=== PATIENT | male | born 1985 | race African-American/Black ===

== ENCOUNTER → 2019-01-03 | Outpatient (CLI) | payer BC | LOC: OD 08:16 | PROVIDERS: ATTEND Otolaryngology | DX: R09.82 Postnasal drip (principal) | CPT/HCPCS: 36415; 82785; 86003 ==

== ENCOUNTER 2019-03-17 06:07 | Day surgery (SDC) | payer BC ==
[2019-03-01 09:49] LABS: ABSOLUTE EOSINOPHILS # (AUTO) 0.1 10^3/uL (0.0-0.6); ABSOLUTE LYMPHOCYTES (AUTO) 2.5 10^3/uL (0.5-4.7); ABSOLUTE MONOCYTES (AUTO) 0.6 10^3/uL (0.1-1.4); ABSOLUTE NEUT (AUTO) 4.6 10^3/uL (1.7-8.2); BASOPHILS % (AUTO) 0.3 % (0-2); EOSINOPHILS % (AUTO) 0.9 % (0-6); HEMATOCRIT 43.2 % (37.9-51.0); HEMOGLOBIN 14.3 g/dL (13.5-17.0); LYMPHOCYTES % (AUTO) 32.5 % (13-45); MEAN CORPUSCULAR HEMOGLOBIN 25.8 pg (27.0-33.4); MEAN CORPUSCULAR HGB CONC 33.1 g/dL (32.0-36.0); MEAN CORPUSCULAR VOLUME 78 fl (80-97); MONOCYTES % (AUTO) 7.2 % (3-13); PLATELET COUNT 198 10^3/uL (150-450); RED BLOOD COUNT 5.53 10^6/uL (4.35-5.55); RED CELL DISTRIBUTION WIDTH 14.8 % (11.5-14.0); SEGMENTED NEUTROPHILS % (AUTO) 59.1 % (42-78); TOTAL CELLS COUNTED % (AUTO) 100 %; WHITE BLOOD COUNT 7.7 10^3/uL (4.0-10.5)
[2019-03-01 10:16] LABS: ANION GAP 10 (5-19); BLOOD UREA NITROGEN 17 mg/dL (7-20); CALCIUM 9.5 mg/dL (8.4-10.2); CARBON DIOXIDE 31 mmol/L (22-30); CHLORIDE 101 mmol/L (98-107); GLUCOSE 93 mg/dL (75-110); POTASSIUM 4.3 mmol/L (3.6-5.0); SODIUM 141.7 mmol/L (137-145)
--- NOTE | 2019-03-01 13:32 | EKG REPORT ---
SEVERITY:- NORMAL ECG - SINUS RHYTHM : Confirmed by: Amaury Franks MD 01-Mar-2019 13:31:45
[~2019-03-17 06:07] MED LIST: LIDOCAINE 0.5% INJ-PF (5 MG/ML) 50 ML SDV SUBCUT PRN
[2019-03-17] MEDS ORDERED: CEFAZOLIN 2 GM/D5W RTU 2 GM/50 ML RTUPB IV ONE (07:31)
[2019-03-17] MEDS ORDERED: ALBUTEROL SULFATE 0.083% NEB 2.5 MG/3 ML AMPUL NEB PRN (07:35)
[2019-03-17] MEDS ORDERED: METOCLOPRAMIDE HCL INJ/PF 10 MG/2 ML SDV ONE (07:41)
[2019-03-17] MEDS ORDERED: FAMOTIDINE INJ/PF 20 MG/2 ML SDV IV ONE (07:43)
[2019-03-17] MEDS ORDERED: MIDAZOLAM 2 MG/2 ML INJ ONE ×2 (07:43→08:36)
[2019-03-17] MEDS ORDERED: ALBUTEROL SULFATE 0.083% NEB 2.5 MG/3 ML AMPUL NEB ONE (07:54)
[2019-03-17] MEDS ORDERED: EPINEPHRINE INJ/PF 1 MG/1 ML AMPULE ONE (08:27)
[2019-03-17] MEDS ORDERED: BUPIVACAINE HCL 0.5%-EPI 1:200000 INJ/PF 30 ML VIAL ONE (08:28)
[2019-03-17] MEDS ORDERED: OXYMETAZOLINE HCL 0.05% NASAL SPRAY 15 ML BOTTLE ONE ×2 (08:28→11:38)
[2019-03-17] MEDS ORDERED: CIPROFLOXACIN HCL/FLUOCINOLONE 0.3%/0.025% OTIC ONE (08:28)
[2019-03-17] MEDS ORDERED: LIDOCAINE 2% INJ-PF (100 MG/5 ML) SYRINGE ONE ×2 (08:35→13:23)
[2019-03-17] MEDS ORDERED: FENTANYL CITRATE INJ/PF 250 MCG/5 ML AMPULE ONE ×2 (08:36→10:10)
[2019-03-17] MEDS ORDERED: PROPOFOL INJ 200 MG/20 ML VIAL IV ONE ×2 (08:36→12:19)
[2019-03-17] MEDS ORDERED: BUPIVACAINE HCL 0.5%/EPI 1:200000 INJ 1.8 ML CARTRIDGE ONE (09:09)
[2019-03-17] MEDS ORDERED: SUCCINYLCHOLINE CHLORIDE INJ 200 MG/10 ML VIAL ONE ×2 (10:33→10:36)
[2019-03-17] MEDS ORDERED: GLYCOPYRROLATE 1 MG/5 ML VIAL ONE (10:33)
[2019-03-17] MEDS ORDERED: ONDANSETRON HCL INJ/PF 4 MG/2 ML SDV ONE (10:33)
[2019-03-17] MEDS ORDERED: DEXAMETHASONE SOD PHOSPHATE INJ 4 MG/1 ML VIAL ONE ×2 (10:33→10:36)
[2019-03-17] MEDS ORDERED: MEPERIDINE HCL/PF INJ 25 MG/1 ML DISP.SYRIN IV PRN (10:59)
[2019-03-17] MEDS ORDERED: DIPHENHYDRAMINE HCL 50 MG/ML VIAL IV PRN (10:59)
[2019-03-17] MEDS ORDERED: FENTANYL CITRATE INJ/PF 100 MCG/2 ML AMPUL IV PRN ×3 (10:59)
[2019-03-17] MEDS ORDERED: PROMETHAZINE HCL INJ 25 MG/1 ML VIAL IV PRN ×2 (10:59)
[2019-03-17] MEDS ORDERED: IPRATROPIUM/ALBUTEROL 0.5-2.5 MG/3 ML AMPUL NEB ONE (12:01)
[2019-03-17] MEDS ORDERED: ALBUTEROL SULFATE HFA (90 MCG/PUFF) 200 PUFF/8.5 GM MDI IH ONE (13:23)
[2019-03-17] MEDS ORDERED: METOPROLOL TARTRATE PF/INJ 5 MG/5 ML SDV IV ONE (13:23)
[2019-03-17] MEDS: FENTANYL CITRATE INJ/PF 100 MCG/2 ML AMPUL ONE ×3 (13:25→13:40)
[2019-03-17] MEDS ORDERED: HYDRALAZINE HCL INJ/PF 20 MG/1 ML SDV ONE (14:05)
[2019-03-17] MEDS ORDERED: ONDANSETRON HCL INJ/PF 4 MG/2 ML SDV IV PRN (14:07)
[2019-03-17] MEDS: LACTATED RINGERS 1000 ML IV PRN ×2 (15:46→23:21)
[2019-03-17] MEDS: OXYCODONE-ACETAMINOPHEN 5-325 MG TABLET PO PRN (15:46)
--- NOTE | 2019-03-17 18:03 | PDOC CONSULTATION ---
Consultation Consult Date: 03/17/19 Attending physician:: GUCCI DELONG Provider Consulted: DORIE ZAMBRANO Consult reason:: Hypoxia History of Present Illness Admission Date/PCP: DIEGO LOPEZ MD History of Present Illness: CARLOS GUDINO is a 33 year old male resents for surgery for vocal cord polypectomy and other ENT procedures complicated by episodic hypoxemia he denies shortness of breath or dyspnea on exertion he has questionable history of asthma and occasionally wheezes. Denies hemoptysis his PPD was negative dates unknown he denies history of chronic lung disease as a child or adolescent he denies exposure to passive smoke as a child was an adult. 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 He denies angina-like chest pain sleeps on 2 pillows no PND no nocturnal cough no edema he admits to snoring restless sleep nocturia x2 unrestful sleep and excessive daytime somnolence. In the past has been diagnosed with obstructive sleep apnea but is never been given CPAP Past Medical History Cardiac Medical History: Reports: Hypertension Denies: Coronary Artery Disease, Myocardial Infarction Pulmonary Medical History: Reports: Asthma - MODERATE, Sleep Apnea Denies: Bronchitis, Chronic Obstructive Pulmonary Disease (COPD), Pneumonia Neurological Medical History: Denies: Seizures Endocrine Medical History: Reports: Obesity Renal/ Medical History: Reports: None Malignancy Medical History: Reports: None GI Medical History: Denies: Crohn's Disease, Gastroesophageal Reflux Disease, Hepatitis, Peptic Ulcer Disease, Ulcerative Colitis Musculoskeltal Medical History: Denies: Arthritis, Gout Skin Medical History: Denies: Eczema, Psoriasis Psychiatric Medical History: Denies: Alcohol Dependency, Substance Abuse, Tobacco Dependency Traumatic Medical History: Denies: Pneumothorax, Stab Wound, Traumatic Brain Injury Hematology: Denies: Anemia, Sickle Cell Disease Infectious Medical History: Denies: Hepatitis B, Hepatitis C, HIV Past Surgical History Past Surgical History: Reports: Tonsillectomy Social History Information Source: Patient, Relative, [facility] Records Smoking Status: Former Smoker Cigarettes Packs Per Day: 0.5 Number of Years Smokin Last Time Smoked: 30 months Hx Recreational Drug Use: Yes Hx Prescription Drug Abuse: No Do you have pets?: Yes Have you had any respiratory illnesses as a child?: No Have you been exposed to any sick contacts recently?: No Have you had any recent respiratory illnesses?: No Have you travelled outside of [place] in the past 12 months?: Yes Family History Family History: Hypertension, Malignancy Parental Family History Reviewed: Yes Children Family History Reviewed: Yes Sibling(s) Family History Reviewed.: Yes Medication/Allergy Home Medications: Lisinopril/Hydrochlorothiazide [Lisinopril-Hctz 20-12.5 mg Tab] 1 each PO DAILY 03/01/19 Montelukast Sodium [Singulair 10 mg Tablet] 10 mg PO DAILY 03/01/19 Omeprazole Magnesium [Prilosec Otc] 20 mg PO DAILY 03/01/19 Allergies/Adverse Reactions: No Known Allergies Allergy (Verified 03/17/19 06:56) Review of Systems Constitutional: PRESENT: fatigue. ABSENT: anorexia, chills, fever(s), headache(s), weight gain, weight loss Eyes: ABSENT: visual disturbances Ears: ABSENT: hearing changes Nose, Mouth, and Throat: ABSENT: mouth pain, sore throat Cardiovascular: ABSENT: chest pain, dyspnea on exertion, edema, orthropnea, p alpitations Respiratory: ABSENT: cough, dyspnea, hemoptysis, sputum Gastrointestinal: ABSENT: abdominal pain, coffee ground emesis, constipation, diarrhea, dysphagia, heartburn, hematemesis, hematochezia, melena, nausea Genitourinary: ABSENT: dysuria, hematuria Musculoskeletal: ABSENT: deformity, joint swelling Integumentary: ABSENT: pruritus, rash Neurological: ABSENT: abnormal gait, abnormal movements, abnormal speech, focal weakness, frequent falls, lack of coordination, memory loss Psychiatric: ABSENT: hallucinations, homidical ideation, suicidal ideation Endocrine: ABSENT: cold intolerance, heat intolerance, polydipsia, polyuria Hematologic/Lymphatic: ABSENT: easy bruising, lymphadenopathy Allergic/Immunologic: ABSENT: seasonal rhinorrhea Physical Exam Vital Signs: Temp Pulse Resp BP Pulse Ox 98.4 F 107 H 20 165/104 H 96 03/17/19 17:00 03/17/19 17:00 03/17/19 17:00 03/17/19 17:00 03/17/19 17:00 Intake & Output 03/16/19 03/17/19 03/18/19 06:59 06:59 06:59 Intake Total 0 1700 Output Total 15 Balance 0 1685 Weight 179.17 kg 179.17 kg General appearance: PRESENT: no acute distress, cooperative, disheveled, morbidly obese Head exam: PRESENT: atraumatic, normocephalic Eye exam: PRESENT: conjunctiva pale, EOMI. ABSENT: nystagmus, periorbital s welling, scleral icterus Mouth exam: PRESENT: dry mucosa, neck supple Neck exam: ABSENT: carotid bruit, full ROM, JVD, lymphadenopathy, meningismus, t enderness, thyromegaly, tracheal deviation, tracheostomy, other Cardiovascular exam: PRESENT: RRR, +S1, +S2 Pulses: PRESENT: normal radial pulses GI/Abdominal exam: PRESENT: soft. ABSENT: mass, tenderness Extremities exam: ABSENT: calf tenderness, clubbing, full ROM, joint swelling Musculoskeletal exam: ABSENT: deformity, dislocation Neurological exam: PRESENT: alert, awake Psychiatric exam: PRESENT: flat affect Skin exam: PRESENT: dry, warm Results Laboratory Results: 03/01/19 08:56 03/17/19 06:45 03/17/19 06:45 Potassium 3.8 Assessment & Plan - Diagnosis (1) Apnea, sleep Is this a current diagnosis for this admission?: Yes Plan: Sleep study after discharge we will start him on empiric BiPAP 08/31 (2) Essential hypertension Is this a current diagnosis for this admission?: Yes Plan: continue current therapy hopefully hypertension will improve after sleep apnea has been attended (3) 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 Gudino and he will participate in his care
[2019-03-17] MEDS ORDERED: HYDRALAZINE HCL 50 MG TABLET PO ONE (18:55)
[2019-03-17 19:00] LABS: ARTERIAL BLOOD H2CO3 1.21 mmol/L (1.05-1.35); ARTERIAL BLOOD HCO3 27.3 mmol/L (20-24); ARTERIAL BLOOD O2 SATURATION 95.8 % (94-98); ARTERIAL BLOOD PCO2 40.3 mmHg (35-45); ARTERIAL BLOOD PH 7.45 (7.35-7.45); ARTERIAL BLOOD PO2 76.6 mmHg (80-100); ARTERIAL BLOOD TOTAL CO2 28.5 mmol/L (23-27)
[2019-03-17 19:02] LABS: ARTERIAL BLOOD FIO2 ROOM AIR
[2019-03-17] MEDS ORDERED: METOPROLOL TARTRATE 100 MG TABLET PO ONE (19:30)
[2019-03-17] MEDS: CLONIDINE HCL 0.1 MG TABLET PO SCH (22:26)
[2019-03-17] MEDS: HYDRALAZINE HCL 50 MG TABLET PO SCH (22:27)
[2019-03-18 05:03] LABS: ABSOLUTE LYMPHOCYTES (AUTO) 1.8 10^3/uL (0.5-4.7); ABSOLUTE MONOCYTES (AUTO) 1.2 10^3/uL (0.1-1.4); ABSOLUTE NEUT (AUTO) 12.2 10^3/uL (1.7-8.2); BASOPHILS % (AUTO) 0.1 % (0-2); EOSINOPHILS % (AUTO) 0.1 % (0-6); HEMATOCRIT 40.2 % (37.9-51.0); HEMOGLOBIN 13.3 g/dL (13.5-17.0); LYMPHOCYTES % (AUTO) 11.7 % (13-45); MEAN CORPUSCULAR HEMOGLOBIN 25.8 pg (27.0-33.4); MEAN CORPUSCULAR VOLUME 78 fl (80-97); PLATELET COUNT 228 10^3/uL (150-450); RED BLOOD COUNT 5.15 10^6/uL (4.35-5.55); RED CELL DISTRIBUTION WIDTH 15.2 % (11.5-14.0); SEGMENTED NEUTROPHILS % (AUTO) 80.1 % (42-78); TOTAL CELLS COUNTED % (AUTO) 100 %; WHITE BLOOD COUNT 15.2 10^3/uL (4.0-10.5)
[2019-03-18 05:22] LABS: ANION GAP 9 (5-19); BLOOD UREA NITROGEN 12 mg/dL (7-20); CALCIUM 9.4 mg/dL (8.4-10.2); CARBON DIOXIDE 28 mmol/L (22-30); CHLORIDE 102 mmol/L (98-107); GLUCOSE 117 mg/dL (75-110); POTASSIUM 4.2 mmol/L (3.6-5.0); SODIUM 138.9 mmol/L (137-145)
[2019-03-18] MEDS: HYDRALAZINE HCL 50 MG TABLET PO SCH ×2 (05:45→14:02)
[2019-03-18] MEDS: OXYCODONE-ACETAMINOPHEN 5-325 MG TABLET PO PRN (05:55)
--- NOTE | 2019-03-18 08:41 | PDOC CONSULTATION ---
Consultation Consult Date: 03/17/19 Provider Consulted: GUCCI DELONG Consult reason:: Medical management History of Present Illness Admission Date/PCP: DIEGO LOPEZ MD History of Present Illness: CARLOS HENDRICKSON is a 33 year old male patient with past medical history of hypertension and vocal cord polyp, patient had vocal cord polypectomy and is postop was complicated by hypertensive urgency. The hospital service consulted to manage his blood pressure. Past Medical History Cardiac Medical History: Reports: Hypertension Denies: Coronary Artery Disease, Myocardial Infarction Pulmonary Medical History: Reports: Asthma - MODERATE, Sleep Apnea Denies: Bronchitis, Chronic Obstructive Pulmonary Disease (COPD), Pneumonia Neurological Medical History: Denies: Seizures Endocrine Medical History: Reports: Obesity Renal/ Medical History: Reports: None Malignancy Medical History: Reports: None GI Medical History: Denies: Crohn's Disease, Gastroesophageal Reflux Disease, Hepatitis, Peptic Ulcer Disease, Ulcerative Colitis Musculoskeltal Medical History: Denies: Arthritis, Gout Skin Medical History: Denies: Eczema, Psoriasis Psychiatric Medical History: Denies: Alcohol Dependency, Substance Abuse, Tobacco Dependency Traumatic Medical History: Denies: Pneumothorax, Stab Wound, Traumatic Brain Injury Hematology: Denies: Anemia, Sickle Cell Disease Infectious Medical History: Denies: Hepatitis B, Hepatitis C, HIV Past Surgical History Past Surgical History: Reports: Tonsillectomy Social History Smoking Status: Former Smoker Cigarettes Packs Per Day: 0.5 Number of Years Smokin Last Time Smoked: 30 months Hx Recreational Drug Use: Yes Hx Prescription Drug Abuse: No - Advance Directive Resuscitation Status: Full Code Family History Family History: Hypertension, Malignancy Parental Family History Reviewed: Yes Children Family History Reviewed: Yes Sibling(s) Family History Reviewed.: Yes Medication/Allergy Home Medications: Lisinopril/Hydrochlorothiazide [Lisinopril-Hctz 20-12.5 mg Tab] 1 each PO DAILY 03/01/19 Montelukast Sodium [Singulair 10 mg Tablet] 10 mg PO DAILY 03/01/19 Omeprazole Magnesium [Prilosec Otc] 20 mg PO DAILY 03/01/19 Allergies/Adverse Reactions: No Known Allergies Allergy (Verified 03/17/19 06:56) Review of Systems Constitutional: PRESENT: as per HPI Eyes: PRESENT: as per HPI Ears: PRESENT: as per HPI Breasts: PRESENT: as per HPI Cardiovascular: PRESENT: as per HPI Respiratory: PRESENT: as per HPI Gastrointestinal: PRESENT: as per HPI Musculoskeletal: PRESENT: as per HPI Endocrine: PRESENT: as per HPI Physical Exam Vital Signs: Temp Pulse Resp BP Pulse Ox 98.1 F 83 20 120/64 93 03/17/19 18:30 03/17/19 18:30 03/17/19 18:30 03/17/19 18:30 03/17/19 18:30 Intake & Output 03/16/19 03/17/19 03/18/19 06:59 06:59 06:59 Intake Total 0 1700 Output Total 15 Balance 0 1685 Weight 179.17 kg 179.17 kg General appearance: PRESENT: morbidly obese Head exam: PRESENT: atraumatic Eye exam: PRESENT: conjunctiva pink Neck exam: ABSENT: carotid bruit, JVD, lymphadenopathy, thyromegaly Respiratory exam: PRESENT: clear to auscultation ericka. ABSENT: rales, rhonchi, wheezes GI/Abdominal exam: PRESENT: normal bowel sounds, soft. ABSENT: distended, gua rding, mass, organolmegaly, rebound, tenderness Results Laboratory Results: 03/01/19 08:56 03/17/19 06:45 03/17/19 06:45 Potassium 3.8 Assessment and Plan - Diagnosis (1) Hypertensive urgency Is this a current diagnosis for this admission?: Yes Plan: Has been started on metoprolol and clonidine. 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
--- NOTE | 2019-03-18 08:42 | PDOC PROGRESS REPORT ---
Subjective Progress Note for:: 03/18/19 Subjective:: Patient seen and examined at bedside. He is awake alert oriented. He complains of postnasal drainage. His blood pressure is well controlled. Reason For Visit: J38.1 POLYP OF VOCAL CORD AND LARYNX Physical Exam Vital Signs: Temp Pulse Resp BP Pulse Ox 98.2 F 100 17 141/84 H 96 03/18/19 07:39 03/18/19 07:39 03/18/19 07:39 03/18/19 07:39 03/18/19 07:39 Pulse Oximeter Continuous Start: 03/17/19 18:05 Freq: RTQ4 Status: Active Protocol: Document 03/18/19 04:00 CMI (Rec: 03/18/19 04:09 CMI [id number]) Pulse Oximetry Assessment Oxygen Saturation (92-100) 95 Oxygen Delivery Method Bi-pap Fraction of Inspired Oxygen (FIO2) 21 Equipment Usage Equipment in Use Continuous Pulse Oximeter 24 Hour Charge Charge Now Continuous SpO2 Machine # 2 Intake & Output 03/17/19 03/18/19 03/19/19 06:59 06:59 06:59 Intake Total 0 3668 Output Total 15 Balance 0 3653 Weight 179.17 kg 184.2 kg General appearance: PRESENT: no acute distress Head exam: PRESENT: atraumatic Eye exam: PRESENT: conjunctiva pink Neck exam: ABSENT: carotid bruit, JVD, lymphadenopathy, thyromegaly Respiratory exam: PRESENT: clear to auscultation ericka. ABSENT: rales, rhonchi, wheezes Neurological exam: PRESENT: alert, awake, oriented to person, oriented to place, oriented to time, oriented to situation Results Laboratory Results: 03/18/19 04:36 03/18/19 04:36 03/17/19 03/18/19 03/18/19 18:45 04:36 04:36 WBC 15.2 H RBC 5.15 Hgb 13.3 L Hct 40.2 MCV 78 L MCH 25.8 L MCHC 33.0 RDW 15.2 H Plt Count 228 Seg Neutrophils % 80.1 H Lymphocytes % 11.7 L Monocytes % 8.0 Eosinophils % 0.1 Basophils % 0.1 Absolute Neutrophils 12.2 H Absolute Lymphocytes 1.8 Absolute Monocytes 1.2 Absolute Eosinophils 0.0 Absolute Basophils 0.0 Carbonic Acid 1.21 HCO3/H2CO3 Ratio 22:1 ABG pH 7.45 ABG pCO2 40.3 ABG pO2 76.6 L ABG HCO3 27.3 H ABG O2 Saturation 95.8 ABG Base Excess 3.0 FiO2 ROOM AIR Sodium 138.9 Potassium 4.2 Chloride 102 Carbon Dioxide 28 Anion Gap 9 BUN 12 Creatinine 0.75 Est GFR ( Amer) > 60 Est GFR (Non-Af Amer) > 60 Glucose 117 H Calcium 9.4 Assessment and Plan - Diagnosis (1) Hypertensive urgency Is this a current diagnosis for this admission?: Yes Plan: Has been started on metoprolol and clonidine. 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
[2019-03-18] MEDS ORDERED: (PENDING PHARMACY ID) (Lisinopril/Hydrochlorothiazide [Lisinopril-Hctz 20-12.5 Mg Tab] 1 E PO SCH (10:00)
[2019-03-18] MEDS ORDERED: MONTELUKAST SODIUM 10 MG TABLET PO SCH (10:00)
[2019-03-18] MEDS ORDERED: LISINOPRIL 10 MG TABLET PO SCH (10:00)
[2019-03-18] MEDS ORDERED: HYDROCHLOROTHIAZIDE 12.5 MG TABLET PO SCH (10:00)
[2019-03-18] MEDS ORDERED: METOPROLOL TARTRATE 50 MG TABLET PO SCH (10:00)
[2019-03-18] MEDS ORDERED: PANTOPRAZOLE SODIUM 20 MG TABLET.DR PO SCH (10:00)
[2019-03-18] MEDS: CLONIDINE HCL 0.1 MG TABLET PO SCH (10:20)
[2019-03-18 14:02] VITALS: BP 137/75
--- NOTE | 2019-03-26 20:55 | OPERATIVE REPORT E ---
Operative Report NAME: CARLOS HENDRICKSON : 1985 AGE: 33Y DATE OF SURGERY: 03/17/2019 ROOM: 414 PREOPERATIVE DIAGNOSES: 1. OBSTRUCTIVE SLEEP APNEA. 2. ADENOTONSILLAR HYPERTROPHY. 3. CHRONIC TONSILLITIS. 4. TONSIL STONES. 5. LARYNGEAL POLYP DISEASE/RECURRENT RESPIRATORY PAPILLOMATOSIS. 6. CHRONIC DYSPHONIA. 7. MORBID OBESITY WITH BODY MASS INDEX (BMI) OF 52. 8. CHRONIC EUSTACHIAN TUBE DYSFUNCTION. POSTOPERATIVE DIAGNOSES: 1. OBSTRUCTIVE SLEEP APNEA. 2. ADENOTONSILLAR HYPERTROPHY. 3. CHRONIC TONSILLITIS. 4. TONSIL STONES. 5. LARYNGEAL POLYP DISEASE/RECURRENT RESPIRATORY PAPILLOMATOSIS. 6. CHRONIC DYSPHONIA. 7. MORBID OBESITY WITH BODY MASS INDEX (BMI) OF 52. 8. CHRONIC EUSTACHIAN TUBE DYSFUNCTION. OPERATIONS: 1. Microscopic direct laryngoscopy with tumor resection. 2. Left eustachian tube balloon pl[place] [address] and with this unlisted code, the following listed therapeutic CPT codes are to be associated, and they are the following: For the left eustachian [place] [address], and [address]771 for bilateral rigid transnasal surgical endoscopy. 3. Bilateral tonsillectomy, patient age greater than 12. 4. Adenoidectomy. 5. Excessive body mass index (BMI) of 52, "morbid obesity." SURGEON: GUCCI DELONG D.O. ANESTHESIA: General endotracheal tube. ANESTHESIA STAFF: GER Chambers. ESTIMATED BLOOD LOSS: 15 mL INTRAVENOUS FLUIDS: 1100 mL COMPLICATIONS: None. DRAINS: None. SPONGE COUNT: Verified. MATERIALS FORWARDED SPECIMEN: 1. Extensive laryngeal polypoid/polyp tissue sent for rule out recurrent respiratory papillomatosis and HPV typing for 6, 11, 16, 18, 31 and 33. 2. Bilateral tonsillar tissue. FINDINGS: 1. The laryngeal polyp tissue was very extensive, which completely covered the true vocal cords and extended from the supraglottic through the glottic introitus into the subglottic space and would ball valve between the vocal cords. The polyps appeared to originate from the left mid to anterior vocal cord, and there was also very scant polyp change noted at the right mid true vocal cord. The polyps also appeared in origin at the medial aspect of the vocal cord vibratory/voicing component. 2. The tonsils were noted to be 2 to 3+ in size, were cryptic in appearance, and there was tonsillar debris present bilateral. 3. Adenoid tissue hypertrophy was 2 to 3+ in size, with Yolanda impression. 4. The Yolanda appeared flattened/compressed in nature. 5. Nasal septal deviation with septal spur and significant inferior turbinate hypertrophy bilateral. 6. The soft palatal tissues were significantly redundant in nature. The uvula was thickened and elongated, and there was significant redundancy noted of the oropharyngeal, hypopharyngeal and nasopharyngeal tissues. INDICATION: This is a 33-year-old male who has been seen, evaluated and followed in the [facility] office. The patient is with history of obstructive sleep apnea, adenotonsillar hypertrophy, chronic tonsillitis, tonsil stones, left chronic eustachian tube dysfunction, chronic dysphonia, and on clinic endoscopy was noted to have severe laryngeal polyps. The patient was also noted to have base of tongue fullness on endoscopic evaluation. There was extensive work with the patient and insurance companies in support of trying to get the base of tongue procedure approved in the setting of all the other procedures having been approved. There was also a transition of insurance policy, with the new policy also not allowing the base of tongue component of the surgeries to be performed. After extensive discussion with the patient and his , they desired to proceed with the surgeries as previously described, without performing the base of tongue component. Once all were agreed upon to proceed in this fashion, the surgeries that were going to be performed were discussed in detail to include their risks and complications, which they all voiced an understanding of. They desired to proceed and consent was obtained. PROCEDURE: The patient was taken to the main operating room and placed on the operating room table in the supine position. There was added time at the beginning of the case, during the case, and at the end of the case, and safely positioning the patient and maneuvering during the case, due to the patient's excessive BMI of 52. The patient had general anesthesia induced via mask and IV access. The Anesthesia staff remarked during the intubation process that all they could really see was an extensive amount of abnormal-appearing laryngeal tissue and could only visualize the most posterior aspect of the airway, where they placed a 7.0 endotracheal tube without difficulty. The patient was then positioned and prepped for microscopic direct laryngoscopy. The upper teeth were protected with a mouthguard. A rigid laryngoscope was passed and the true vocal cords were brought into view to include the abnormal laryngeal polyp tissue. The patient was placed into indirect suspension. At this point, with use of laryngeal instrumentation, there was an extensive amount of polyp tissue passed off for permanent pathology evaluation and HPV typing. Once complete, the laryngeal rocket engine tester blade at a setting of 500 rpm was used to debulk the remaining abnormal polyp tissue. Once in plane with the true vocal cord surface, the procedure was stopped on the left. It was finally at this point that the right true vocal could be fully evaluated, and it was noted that there was scant polyp type change noted at the medial aspect of the right mid vocal cord. There was no biopsy or debulking of tissue performed on the right so as to avoid scarring. At this point, the patient was released from indirect suspension and the rigid laryngoscope was removed, along with the mouthguard. There was no damage to the lips, teeth, tongue, gums or inside of the mouth noted. The patient was returned to the Anesthesia staff to allow for repositioning and preparation for tonsil, adenoid and left eustachian tube balloon plasty. At this point, the patient was noted to desat, and it appeared that the patient was biting on the endotracheal tube. The anesthesiologist and additional [employer] arrived immediately to the room to provide additional assistance. It was confirmed that the endotracheal tube was still within proper position but that the patient had bitten onto the endotracheal tube. The anesthesiology team completed their evaluation and determined that it was safe to proceed with the remaining aspects of surgery. At this point, the previously placed Afrin-soaked neuro patties were removed from the patient's nasal passages. He underwent rigid transnasal surgical endoscopy with a 30-degree rigid endoscope and the eustachian tube balloon plasty system was introduced and the balloon was then introduced into the patient's left eustachian tube opening. It was inflated to 12 atmospheres and was held in place for 2 minutes. Once complete, the balloon was released and was removed from the patient's nose, along with the rigid endoscope. At this point, the patient was rotated 90 degrees and positioned and prepped for tonsil and adenoid surgery. The patient's lips, teeth, tongue, gums and inside of the mouth were inspected and noted to be without defect. The patient had a mouth gag inserted. It was opened, and the patient was placed into suspension. At this point, a soft catheter was passed through the patient's nose and used to suspend the soft palate. The findings are as noted above. At this point, using an adenoid microdebrider system at the setting of 1500 RPM, the adenoid tissue was debulked. Also due to the depth of the nasopharynx from a transoral route, there was additionally use of suction electrocautery from a bilateral transnasal aspect to cauterize and ablate the most superior adenoid tissue and medial cuff of the Yolanda. This was performed in conjunction with direct bilateral transnasal rigid surgical endoscopy. There had also been adenoid packs utilized along with suction cautery via a transoral route as well. Also of note, the Anesthesia staff at times during the tonsilloadenoid portion of the procedure would ask to pause with use of cautery so that they could hyperventilate the patient, as her saturations would decrease into the high 80s to 90% range, and once the patient was back to 100% oxygen saturation, the cautery portion of the case would resume. At this point, a plasma J-hook device was used to dissect and remove tonsillar tissue without difficulty. This device was also used to provide adequate hemostasis. There was normal saline irrigation performed and it was suctioned. There was adequate hemostasis noted. At this point, the soft catheter was released and removed from the patient's nose. The mouth gag was released from suspension and closed. It was next reopened and there was again adequate hemostasis noted. The mouth gag was then closed and removed from the patient's mouth. There was no damage noted to the lips, teeth, tongue, gums, or inside of the mouth. The patient was then returned to the anesthesia staff and allowed to emerge from general anesthesia. The patient was extubated in the main Operating Room and was then transported to the postanesthesia care unit in stable condition. There were no complications. DICTATING PHYSICIAN: GUCCI DELONG D.O. [id number] PHY#: [id number] ID: [id number] JOB#: [id number] ACCT: [id number] cc:GUCCI DELONG D.O. >
== END 2019-03-18 14:14 | disposition home or self-care (01) ==
LOC: OROUT 06:07 → 4N 15:03 → OROUT 03-18 14:14
PROVIDERS: ATTEND Otolaryngology
DX: J38.1 Polyp of vocal cord and larynx (principal); J01.91 Acute recurrent sinusitis, unspecified; J32.9 Chronic sinusitis, unspecified; J34.3 Hypertrophy of nasal turbinates; R09.81 Nasal congestion; J35.3 Hypertrophy of tonsils with hypertrophy of adenoids; R06.09 Other forms of dyspnea; R49.0 Dysphonia; J34.2 Deviated nasal septum; J30.9 Allergic rhinitis, unspecified; R09.82 Postnasal drip; H74.03 Tympanosclerosis, bilateral; K21.0 Gastro-esophageal reflux disease with esophagitis; J45.909 Unspecified asthma, uncomplicated; K21.9 Gastro-esophageal reflux disease without esophagitis; Z79.899 Other long term (current) drug therapy; Z87.891 Personal history of nicotine dependence; Z68.43 Body mass index [BMI] 50.0-59.9, adult; G47.33 Obstructive sleep apnea (adult) (pediatric); J35.8 Other chronic diseases of tonsils and adenoids; H69.83 Other specified disorders of Eustachian tube, bilateral; I10 Essential (primary) hypertension; R09.02 Hypoxemia; E66.2 Morbid (severe) obesity with alveolar hypoventilation
CPT/HCPCS: 69799; 42821; 31535; 93005; 36415 ×2; 82803; 84132; 85025 ×2; 80048 ×2; 88304 ×2; 88305 ×2; 93010; 36600; 94660 ×2; 94762 ×2; 00320; J2250; J3490 ×6; J1100; J3010 ×2; J0360; J2001; J2765; J0330; J2405; J7120; J2704; S0028; J7620; J0690; 320; J0171

== ENCOUNTER 2019-03-22 06:47 | Emergency (ER) | payer BC ==
[2019-03-22] MEDS ORDERED: TRANEXAMIC ACID INJ/PF 1,000 MG/10 ML SDV IV ONE (07:14)
--- NOTE | 2019-03-22 07:18 | ER Document Report ---
ED Medical Screen (RME) - General Chief Complaint: Post Surgical Bleeding Stated Complaint: NOSE BLEED Time Seen by Provider: 03/22/19 07:07 Primary Care Provider: DIEGO LOPEZ MD [Primary Care Provider] - Follow up as needed Notes: 33-year-old male chief complaint of nosebleed that started yesterday evening, resolved, and then started bleeding much heavier this morning. He has had intermittent nosebleeds in the past, nothing severe. He is not on a blood thinner. He is status post vocal cord polyp removal and tonsil and adenoid removal by Dr. Diop last Wednesday. He has a history of hypertension, asthma, medicated. TRAVEL OUTSIDE OF THE [place] IN LAST 30 DAYS: No - Related Data Allergies/Adverse Reactions: No Known Allergies Allergy (Verified 03/17/19 06:56) Past Medical History - Past Medical History Cardiac Medical History: Reports: Hx Hypertension Denies: Hx Coronary Artery Disease, Hx Heart Attack Pulmonary Medical History: Reports: Hx Asthma - MODERATE, Hx Sleep Apnea Denies: Hx Bronchitis, Hx COPD, Hx Pneumonia Neurological Medical History: Denies: Hx Cerebrovascular Accident, Hx Seizures Renal/ Medical History: Denies: Hx Peritoneal Dialysis GI Medical History: Denies: Hx Crohn's Disease, Hx Gastroesophageal Reflux Disease, Hx Hepatitis, Hx Ulcerative Colitis Musculoskeltal Medical History: Denies Hx Arthritis, Denies Hx Gout Skin Medical History: Denies Hx Eczema, Denies Hx Psoriasis Traumatic Medical History: Denies: Hx Pneumothorax, Hx Traumatic Brain Injury Infectious Medical History: Denies: Hx Hepatitis, Hx HIV Past Surgical History: Reports: Hx Tonsillectomy - adenoids - Immunizations Hx Diphtheria, Pertussis, Tetanus Vaccination: Yes Physical Exam - Vital signs Vitals: Temp Pulse Resp BP Pulse Ox 97.8 F 84 20 158/92 H 95 03/22/19 06:52 03/22/19 06:52 03/22/19 06:52 03/22/19 06:52 03/22/19 06:52 - HEENT Nasal: Epistaxis - Current bleeding from both nostrils with some bleeding down the posterior pharynx noted Course - Re-evaluation Re-evalutation: 03/22/19 07:30 Had patient blow out the blood clots in his nose, this was much worse on the right side, afterwards TXA was sprayed into both nostrils. Pressure applied for couple of minutes. Initially appeared to have stopped. - Vital Signs Vital signs: Temp Pulse Resp BP Pulse Ox 97.8 F 84 20 158/92 H 95 03/22/19 06:52 03/22/19 06:52 03/22/19 06:52 03/22/19 06:52 03/22/19 06:52 Doctor's Discharge - Discharge Referrals: DIEGO LOPEZ MD [Primary Care Provider] - Follow up as needed
[2019-03-22] MEDS ORDERED: OXYMETAZOLINE HCL 0.05% NASAL SPRAY 15 ML BOTTLE NASL ONE (08:06)
--- NOTE | 2019-03-22 10:02 | ER Document Report ---
Entered by BOBBI HANNA SCRIBE 03/22/19 0814 Acting as scribe for:JIM GUILLEN MD ED General - General Chief Complaint: Post Surgical Bleeding Stated Complaint: NOSE BLEED Time Seen by Provider: 03/22/19 07:07 Primary Care Provider: DIEGO LOPEZ MD [Primary Care Provider] - Follow up as needed Notes: This 33-year-old male patient comes emergency room for nosebleed. On 03/17/2019 the patient had a procedure to open his left eustachian tube, tonsils and adenoids removed, and multiple polyps on vocal cord removed. Original surgery plan included base of tongue reduction surgery, but this was not done at that time. He is not on any anticoagulants or antiplatelet therapy. Last night he had a little bit of nosebleeding but stopped on his own. The bleeding began again this morning and was much heavier with clots. He was seen when he arrived by one of the PAs in the department, and had TXA placed in each nostril and then the nostrils clamped shut. This seems to have slowed or stopped the bleeding at this time. TRAVEL OUTSIDE OF THE [place] IN LAST 30 DAYS: No - Related Data Allergies/Adverse Reactions: No Known Allergies Allergy (Verified 03/17/19 06:56) Past Medical History - Social History Smoking Status: Never Smoker Family History: Hypertension, Malignancy Patient has suicidal ideation: No Patient has homicidal ideation: No - Past Medical History Cardiac Medical History: Reports: Hx Hypertension Denies: Hx Coronary Artery Disease, Hx Heart Attack Pulmonary Medical History: Reports: Hx Asthma - MODERATE, Hx Sleep Apnea Denies: Hx Bronchitis, Hx COPD, Hx Pneumonia Neurological Medical History: Denies: Hx Cerebrovascular Accident, Hx Seizures Renal/ Medical History: Denies: Hx Peritoneal Dialysis GI Medical History: Denies: Hx Crohn's Disease, Hx Gastroesophageal Reflux Disease, Hx Hepatitis, Hx Ulcerative Colitis Musculoskeletal Medical History: Denies Hx Arthritis, Denies Hx Gout Skin Medical History: Denies Hx Eczema, Denies Hx Psoriasis Traumatic Medical History: Denies: Hx Pneumothorax, Hx Traumatic Brain Injury Infectious Medical History: Denies: Hx Hepatitis, Hx HIV Past Surgical History: Reports: Hx Tonsillectomy - adenoids - Immunizations Hx Diphtheria, Pertussis, Tetanus Vaccination: Yes Physical Exam - Vital signs Vitals: Temp Pulse Resp BP Pulse Ox 97.8 F 84 20 158/92 H 95 03/22/19 06:52 03/22/19 06:52 03/22/19 06:52 03/22/19 06:52 03/22/19 06:52 - Notes Notes: PHYSICAL EXAMINATION: GENERAL: Well-appearing, well-nourished and in no acute distress. HEAD: Atraumatic, normocephalic. EYES: Pupils equal round and reactive to light, extraocular movements intact, sclera anicteric, conjunctiva are normal. ENT: There is fresh blood in both nostrils, no obvious bleeding source is seen at this time. He has had TXA introduced into his nose about an hour ago and that has seemed to stop the bleeding.(See the procedure note). NECK: Normal range of motion, supple without lymphadenopathy LUNGS: Breath sounds clear to auscultation bilaterally and equal. No wheezes rales or rhonchi. HEART: Regular rate and rhythm without murmurs ABDOMEN: Soft, nontender, normoactive bowel sounds. No guarding, no rebound. No masses appreciated. EXTREMITIES: Normal range of motion, no pitting or edema. No cyanosis. NEUROLOGICAL: Cranial nerves grossly intact. Normal speech, normal gait. Normal sensory, motor, and reflex exams. PSYCH: Normal mood, normal affect. SKIN: Warm, Dry, normal turgor, no rashes or lesions noted. Course - Re-evaluation Re-evalutation: 03/22/19 08:22 PROCEDURE: The nose clamp was removed and otoscope used to look inside each nostril. There was considerable fresh blood in each nostril, but did not appear to have active bleeding. Afrin nose spray was escorted up into each nostril while the patient had his head tilted back, and I had him sniff during the introduction of the Af rin. It did adequately run down the back of his throat causing him to cough and gag and spit out large amount of clot. On repeating this in each nostril, when he did gag and spit there was minimal blood noted the second time. At this point and Afrin-soaked cottonball was shaped into a torpedo and rotated up into each nostril. He was watched for a few minutes and no bleeding was noted. He will be observed and reevaluated in about 30 minutes. 03/22/19 10:02 The cotton balls were removed, there was minimal blood staining noted, there is no active bleeding at this time. The patient has not had any blood running down the back of his throat. This is obviously a bilateral anterior nosebleed. Bacitracin ointment was placed up in each nostril demonstrated to the patient how to do this at home. He was also given instructions on how to use the Afrin nose spray and the Afrin-soaked cotton balls if he starts to have recurrent nosebleeds. - Vital Signs Vital signs: Temp Pulse Resp BP Pulse Ox 97.8 F 84 20 158/92 H 95 03/22/19 06:52 03/22/19 06:52 03/22/19 06:52 03/22/19 06:52 03/22/19 06:52 Discharge - Discharge Clinical Impression: Epistaxis Condition: Stable Disposition: HOME, SELF-CARE Additional Instructions: Nosebleed Instructions There is a significant chance of re-bleeding following a nosebleed. Proper care makes this less likely. Do not touch the nose for 24 hours. Do not blow the nose forcefully for one week. After 24 hours, gently apply Vaseline ointment to both nostrils with the tip of a finger, three times a day, for one week. It's normal to have a bloody mucous discharge for a few days. If active bleeding recurs, blow all the blood from the nose, then sit quietly and pinch the nose as firmly as possible for 10 minutes. If this does not stop the bleeding, return for further care. If packing was left in the nose and it starts to come out of the nostril, either tuck it back in or cut it off. Don't pull it out. Return for recheck and removal of the packing when instructed. Persons with frequent nosebleeds should avoid aspirin (unless prescribed for another reason). Humidity in the bedroom, and petroleum jelly applied to the nostrils at night may help. Use the Afrin nose spray and cotton balls as directed if you have further nosebleeds. Put Vaseline or bacitracin ointment into each nostril 2-3 times a day and always at bedtime. Follow-up with your ear nose and throat doctor if any further problems. RETURN TO THE EMERGENCY ROOM IF ANY NEW OR WORSENING SYMPTOMS. Referrals: DIEGO LOPEZ MD [Primary Care Provider] - Follow up as needed GUCCI DELONG DO [ASSOCIATE] - Follow up as needed Scribe Attestation: 03/22/19 08:25 I personally performed the services described in the documentation, reviewed and edited the documentation which was dictated to the scribe in my presence, and it accurately records my words and actions. I personally performed the services described in the documentation, reviewed and edited the documentation which was dictated to the scribe in my presence, and it accurately records my words and actions.
[2019-03-22 10:05] VITALS: BP 139/84
== END 2019-03-22 10:12 | disposition home or self-care (01) ==
LOC: ER 06:47
DX: R04.0 Epistaxis (principal); Z90.89 Acquired absence of other organs; Z98.890 Other specified postprocedural states; I10 Essential (primary) hypertension; J45.909 Unspecified asthma, uncomplicated
CPT/HCPCS: 99283; 30901; J3490 ×2